=== PATIENT | male | born 1980 | race Asian ===

== ENCOUNTER 2016-06-01 14:00 | Emergency (ER) | payer BC ==
[~2016-06-01] VITALS: Ht 185.4 cm; Wt 80.0 kg
[~2016-06-01 14:00] MED LIST: ALPR2TAB PO; CITA20TA11 PO; LEVO5TAB10 PO
[2016-06-01 14:07] VITALS: Ht 185.4 cm; Wt 80.0 kg
[2016-06-01] MEDS ORDERED: SOD CHLORIDE 0.9% 1,000 ML IV STA (14:11)
[2016-06-01] MEDS ORDERED: ACETAMINOPHEN 500 MG TAB PO STA (14:11)
--- NOTE | 2016-06-01 14:44 | RADRPT ---
PROCEDURE: XR Chest. CLINICAL INDICATION: Chest pain TECHNIQUE: Chest PA. COMPARISON: 09/09/2015 FINDINGS: The mediastinal structures are unremarkable. The heart is normal in size and configuration. The pu lmonary vascularity is normal. The lung [place] are unremarkable. No consolidation is identified. The pleural spaces are unremarkable. The axial skeleton is unremarkable. IMPRESSION: No active intrathoracic disease. RPTAT: [facility] .Stephan Leon MD, MD Date Time Electronically viewed and signed by .Stephan Leon MD, MD on 06/01/2016 14:44 .B/
[2016-06-01] MEDS ORDERED: PRED20TA PO (15:26)
[2016-06-01] MEDS ORDERED: ALBU8.5H3 INH (15:26)
[2016-06-01] MEDS ORDERED: AZIT250T94 PO (15:26)
--- NOTE | 2016-06-01 15:30 | ERD ---
ER Documentation Chief Complaint Date/Time DATE: 06/01/16 TIME: 15:28 Chief Complaint C/O FEVER AND COUGH HPI This 36-year-old male complains of day 3 of brown productive sputum cough with subjective fevers and some dizziness. No shortness of breath on exertion or chest pain no vomiting diarrhea. No swelling or dyspnea on exertion ROS All systems reviewed and are negative except as per history of present illness. Medications Home Meds Active Scripts Albuterol Sulfate* (Proair HFA*) 8.5 Gm Hfa.aer.ad, 2 PUFF INH Q4, #1 INHALER Prov:CHAPO FLORES DO 06/01/16 Prednisone* (Prednisone*) 20 Mg Tab, 60 MG PO DAILY for 5 Days, TAB Prov:CHAPO FLORES DO 06/01/16 Azithromycin* (Zithromax*) 250 Mg Tablet, 250 MG PO .ZPACK DIRECTED, #6 TAB TAKE 500 MG (2 TABS) THE FIRST DAY THEN 250 MG (1 TAB) DAYS 2-5 Prov:CHAPO FLORES DO 06/01/16 Reported Medications Levocetirizine Dihydrochloride (Xyzal) 5 Mg Tablet, 5 MG PO QAM, TAB 09/09/15 Citalopram Hydrobromide* (Celexa*) 20 Mg Tablet, 20 MG PO DAILY, #30 TAB 09/09/15 Alprazolam* (Xanax*) 2 Mg Tablet, 2 MG PO QHS Y for SLEEP, TAB 09/09/15 Allergies Allergies: Coded Allergies: No Known Allergy (Unverified , 09/09/15) PMhx/Soc History of Surgery: No Hx Neurological Disorder: No Hx Respiratory Disorders: No Hx Cardiac Disorders: No Hx Psychiatric Problems: Yes (ANXIETY) Hx Miscellaneous Medical Probl: No Hx Alcohol Use: No Hx Substance Use: No Hx Tobacco Use: No FmHx Family History: No coronary disease Physical Exam Vitals Vital Signs Date Time Temp Pulse Resp B/P Pulse Ox O2 Delivery O2 Flow Rate FiO2 06/01/16 14:07 98.5 70 19 135/74 100 Physical Exam Const: Well-developed, well-nourished Head: Atraumatic, normocephalic Eyes: Normal Conjunctiva, PERRLA, EOMI, normal sclera, no nystagmus ENT: Normal External Ears, Nose and Mouth, moist mucus membranes. Neck: Full range of motion. No meningismus, no lymphadenopathy. Resp: Clear to auscultation bilaterally, no wheezing, rhonchi, rales Cardio: Regular rate and rhythm, no murmurs, S1 S2 present Abd: Soft, non tender x 4, non distended. Normal bowel sounds, no guarding or rebound, no pulsitile abdominal masses or bruits Skin: No petechiae or rashes, no ecchymosis , no maculopapular rash Back: No midline or flank tenderness Ext: No cyanosis, or edema, FROM x 4, normal inspection, neurovascularly intact x 4 Neur: Awake and alert, STR 5/5 x 4, sensation intact x 4, no focal findings, cerebellum intact Psych: Normal Mood and Affect Results 24 hrs Current Medications Medications (Trade) Dose Ordered Sig/Dimitri Route PRN Reason Start Time Stop Time Status Last Admin Dose Admin Sodium Chloride (NS) 1,000 ml @ 1,000 mls/hr Q1H STAT IV 06/01/16 14:11 06/01/16 15:10 DC 06/01/16 14:58 Acetaminophen (Tylenol Tab) 1,000 mg ONCE STAT PO 06/01/16 14:11 06/01/16 14:14 DC 06/01/16 15:02 Departure Diagnosis: Primary Impression: Bronchitis Condition: Stable Patient Instructions: Bronchitis, Antiobiotic Treatment (Adult) CHAPO FLORES DO Jun 01, 2016 15:29
== END 2016-06-01 16:04 | disposition home or self-care (01) ==
LOC: E/R 14:00
DX: J20.9 Acute bronchitis, unspecified (principal)
CPT/HCPCS: 71010; J7030

== ENCOUNTER 2017-11-25 10:55 | Emergency (ER) | END 2017-11-25 13:56 | disposition home or self-care (01) ==